=== PATIENT | male | born 1965 | race Hispanic/Latino ===

== ENCOUNTER 2018-12-17 06:45 | Inpatient (IN) | payer OTHER ==
--- NOTE | 2018-12-17 07:12 | C.PDOC ---
History Of Present Illness 53 year old male presents to ED requesting detox. Patient states that he last used heroin last night. He notes sniffing heroin, no injection. He denies any fall or trauma. He notes that he called ahead regarding detox. He denies any fever, chills or night seats. No abdominal pain. No chest pain or shortness of breath. No other drug use besides heroin. Patient denies any physical complaints, suicidal ideation, and homicidal ideation. Time Seen by Provider: 12/17/18 07:01 Chief Complaint (Nursing): Substance Abuse History Per: Patient History/Exam Limitations: no limitations Onset/Duration Of Symptoms: Other (requesting detox) Suicide/Self Injury Attempted (Context): None Modifying Factor(s): Other (heroin) Severity: None Associated Symptoms: denies: Suicidal Thoughts, Suicidal Plan, Other (homicidal ideation) Involuntary Hold By: None Recent travel outside of the [place]: No Past Medical History Reviewed: Historical Data, Nursing Documentation, Vital Signs Vital Signs: Last Vital Signs Temp 97.8 F 12/17/18 06:50 Pulse 79 12/17/18 06:50 Resp 16 12/17/18 06:50 BP 120/84 12/17/18 06:50 Pulse Ox 99 12/17/18 06:50 - Medical History PMH: Anxiety, Depression Surgical History: No Surg Hx Family History: States: Unknown Family Hx - Social History Hx Alcohol Use: Yes Hx Substance Use: Yes - Immunization History Hx Tetanus Toxoid Vaccination: No Hx Influenza Vaccination: No Hx Pneumococcal Vaccination: No Review Of Systems Constitutional: Negative for: Fever, Chills, Weakness Eyes: Negative for: Pain, Vision Change, Eyelid Inflammation, Redness ENT: Negative for: Ear Pain, Ear Discharge, Nose Pain, Nose Congestion, Mouth Pain, Mouth Swelling Cardiovascular: Negative for: Chest Pain, Palpitations, Orthopnea, Edema Respiratory: Negative for: Cough, Shortness of Breath Gastrointestinal: Negative for: Nausea, Vomiting, Abdominal Pain, Constipation, Melena, Hematochezia Genitourinary: Negative for: Dysuria, Frequency Musculoskeletal: Negative for: Neck Pain, Shoulder Pain Skin: Negative for: Rash, Lesions Neurological: Negative for: Weakness, Numbness, Dizziness Psych: Negative for: Anxiety Physical Exam - Physical Exam Appears: Well, Non-toxic, No Acute Distress Skin: Normal Color, Warm, Dry Head: Atraumatic, Normacephalic Eye(s): bilateral: Normal Inspection, PERRL, EOMI Ear(s): Bilateral: Normal Nose: Normal, No Flaring, No Discharge, No Epistaxis, No Septal Hematoma Oral Mucosa: Moist Tongue: Normal Appearing Lips: Normal Appearing Teeth: Normal Dentition Gingiva: Normal Appearing Throat: Normal, No Erythema, No Exudate Neck: Normal, Normal ROM, Trachea Midline, No Midline Cervical Tenderness, Sup ple, No Other (meningeal signs) Lymphatic: Normal Exam Chest: Symmetrical, No Deformity Cardiovascular: Rhythm Regular, No Friction Rub, No Murmur, No JVD Respiratory: Normal Breath Sounds, No Accessory Muscle Use, No Rales, No Rhonchi, No Wheezing Gastrointestinal/Abdominal: Normal Exam, Soft, No Tenderness, No Distention Back: Normal Inspection, No CVA Tenderness, No Vertebral Tenderness Extremity: Normal ROM, No Tenderness Extremity: Bilateral: Atraumatic, Normal Color And Temperature, Normal ROM Neurological/Psych: Oriented x3, Normal Speech, Normal Cognition, No Cerebellar Signs, Normal Motor Gait: Steady Extremity: Right: No Drift, Left: No Drift ED Course And Treatment - Laboratory Results Result Diagrams: 12/17/18 07:32 12/17/18 07:32 O2 Sat by Pulse Oximetry: 99 (in RA) Medical Decision Making Medical Decision Makin53 year old male requesting detox from heroin no fall or trauma. No headache, nausea, vomiting. No fever, chills or night sweats. No abdominal pain. No GI or complaints. No rash noted, no injection sites. Plan: Labs with UA and drug screen ordered for patient Crisis called for patient. 0816 pending labs, pt in nad 0837 labs largely unremarkable, medically clear informed Pt to follow up with his PMD and urologist outpatient for blood in stool. He denies any body aches / fall / trauma or back pain. pt in NAD pending crisis dispo [id number] pt in [facility] appreciate consult w/ Crisis: To Dr. De Anda, heroin detox Disposition - Disposition Disposition: HOME/ ROUTINE Disposition Time: 08:37 Condition: GOOD Forms: [facility] (Vietnamese) - Clinical Impression Clinical Impression: Heroin use - Scribe Statement The provider has reviewed the documentation as recorded by the Scribe (Aide Leonard) Provider Attestation: All medical record entries made by the Scribe were at my direction and personally dictated by me. I have reviewed the chart and agree that the record accurately reflects my personal performance of the history, physical exam, medical decision making, and the department course for this patient. I have also personally directed, reviewed, and agree with the discharge instructions and disposition.
--- NOTE | 2018-12-17 07:13 | C.PDOC ---
Time Seen by Provider: 12/17/18 07:01 Chief Complaint (Nursing): Substance Abuse Past Medical History Vital Signs: Last Vital Signs Temp 97.8 F 12/17/18 06:50 Pulse 79 12/17/18 06:50 Resp 16 12/17/18 06:50 BP 120/84 12/17/18 06:50 Pulse Ox 99 12/17/18 06:50 - Medical History PMH: Anxiety, Depression - Social History Hx Alcohol Use: Yes Hx Substance Use: Yes - Immunization History Hx Tetanus Toxoid Vaccination: No Hx Influenza Vaccination: No Hx Pneumococcal Vaccination: No ED Course And Treatment O2 Sat by Pulse Oximetry: 99 Disposition - Disposition Forms: [employer] (Uzbek)
[2018-12-17 07:41] LABS: BASO # 0.1 K/uL (0.0-0.2); BASO % 0.7 % (0.0-2.0); EOS # 0.3 K/uL (0.0-0.7); EOS % 3.7 % (0.0-4.0); HEMOGLOBIN 13.7 g/dL (12.0-18.0); LYMPH # 2.8 K/uL (1.0-4.3); MEAN CELL VOLUME 93.6 fL (80.0-94.0); MEAN CORPUSCULAR HGB CONC 34.2 g/dL (33.0-37.0); MEAN PLATELET VOLUME 7.3 fL (7.2-11.7); MONO # 0.5 K/uL (0.0-0.8); MONO % 6.6 % (0.0-10.0); NEUT # 4.1 K/uL (1.8-7.0); RBC 4.29 Mil/uL (4.40-5.90); RED CELL DISTRIBUTION WIDTH 13.4 % (11.5-14.5); WHITE BLOOD COUNT 7.7 K/uL (4.8-10.8)
[2018-12-17 08:00] LABS: ACETAMINOPHEN < 10.0 ug/mL (10.0-30.0); SALICYLATE < 1.0 mg/dL 1
[2018-12-17 08:02] LABS: ALB/GLOB RATIO 1.6 (1.0-2.1); ALBUMIN 4.6 g/dL (3.5-5.0); ALT/SGPT 25 U/L (21-72); AST/SGOT 28 U/L (17-59); BLOOD UREA NITROGEN 20 mg/dL (9-20); CALCIUM 9.4 mg/dl (8.6-10.4); GFR NON-AFRICAN AMERICAN > 60
[2018-12-17 08:09] LABS: SQUAMOUS EPITHIAL 1 /hpf (0-5); URINE BILIRUBIN NEGATIVE (NEGATIVE); URINE BLOOD 1+ (NEGATIVE); URINE CLARITY Clear (Clear); URINE COLOR Yellow (YELLOW); URINE GLUCOSE (UA) NORMAL (Normal); URINE LEUKOCYTE ESTERASE NEG Leu/uL (Negative); URINE PROTEIN NEGATIVE (NEGATIVE); URINE UROBILINOGEN NORMAL mg/dL (0.2-1.0)
[2018-12-17 08:37] LABS: BARBITURATES, UR NEGATIVE (NEGATIVE); BENZODIAZEPINES, UR NEGATIVE (NEGATIVE); PHENCYCLIDINE, UR NEGATIVE (NEGATIVE)
[2018-12-17 08:59] LABS: OPIATES, UR POSITIVE (NEGATIVE)
--- NOTE | 2018-12-17 11:56 | PCM.BM ---
<Meka Menendez - Last Filed: 12/17/18 11:54> Treatment Plan Problems - Problems identified on initial assessmt Low Motivation to Change Date Initiated: 12/17/18 Time Initiated: 11:54 Assessment reference: NA Status: Active Defensive Coping Date Initiated: 12/17/18 Time Initiated: 11:55 Assessment reference: NA Status: Active Treatment assets and liabiliti Patient Assests: cooperative, self-reliant, ADL independent, physically healthy, negotiates basic needs Patient Liabilities: live alone, financial problems, poor support system, relationship conflicts, substance abuse - Milieu Protocol Maintain good personal hygiene: daily Encourage regular showers, daily Remind patient to perform daily oral care, daily Assist patient to perform ADL's Maintain personal safety: every shift Educate patient to report safety concerns to staff, every shift Monitor environment for contraband/sharps Medication safety: Monitor for expected outcome, potential side effects: every shift, Assess barriers to learning: every shift, Assess readiness for medication education: every shift <Adriana De Anda - Last Filed: 12/19/18 18:50> - Diagnosis (1) Opioid use disorder, severe, dependence Status: Acute Interventions: 12/17/18 18:50 * Assess 7x/week regarding severity of withdrawal * Educate regarding risks, benefits, side effects and alternatives of medications * Use Motivational Interviewing for abstinence * Use CBT for relapse prevention * Medication management for withdrawal symptoms * Encourage medication assisted treatment *
--- NOTE | 2018-12-17 12:37 | PCM.PSYCH ---
Initial Psychiatric Evaluation - Initial Psychiatric Evaluation Type of Admission: Voluntary Legal Status: Capacity Chief Complaint (in patient's own words): "I'm not well" History of Present Illness and Precipitating Events: This is a 53 year old male who is single with 1 adult child, currently living with his father, and unemployed with no income. He presented to the detox unit for heroin, Xanax, and alcohol. Patient reports experiencing severe opioid withdrawal symptoms of nausea, tremors, headaches, fever and chills, and stomach pain. Patient states he last used heroin, Xanax, and alcohol yesterday morning at 7am. He began using oxycodone after sustaining an injury while working before turning to heroin. He started using Xanax to treat his anxiety attacks. Patient denies a history of withdrawal symptoms for Xanax and alcohol. Patient denies homicidal or suicidal ideations, auditory or visual hallucinations, or paranoia. Patient reports sniffing 15 bags of heroin per day for the last 7 years. Patient ingests 2-3 sticks of Xanax per day for the last 2-3 years. Patient drinks 5 drinks total between beers and shots everyday for the last 15 years. He last used each substance yesterday at 7am. Patient smokes pack per day for the last 20 years. Patient confirms sporadic marijuana and cocaine use. Patient denies methamphetamine use. Patient states she has detoxed 2 times, most recently 5 months ago at [facility]. He relapsed 2 days after leaving. Patient confirms 1 rehab stint in his 30s. Patient denies maintenance therapy with methadone or suboxone. Psych Hx: anxiety and depression, both severe and at times debilitating Fam Psych: denies PMHx: pinched thoracic nerve, muscle spasms Meds: Tylenol Allergies: denies SurgHx: denies Current Medications: Active Medications Generic Name Dose Route Start Last Admin Trade Name Freq PRN Reason Stop Dose Admin Al Hydrox/Mg Hydrox/Simethicone 30 ml 12/17/18 12:23 Maalox 30 Ml PO TID PRN Indigestion / Heartburn Clonidine HCl 0.1 mg 12/17/18 12:19 Catapres PO Q4 PRN COWS Score More or Equal to 5 Hydroxyzine HCl 50 mg 12/17/18 12:20 Atarax PO Q6H PRN Anxiety Ibuprofen 600 mg 12/17/18 12:19 Motrin Tab PO Q6 PRN Pain, moderate (4-7) Loperamide HCl 2 mg 12/17/18 12:19 Imodium PO Q8 PRN Diarrhea Ondansetron HCl 4 mg 12/17/18 12:19 Zofran Tab PO Q8 PRN Nausea/Vomiting Pneumococcal Polyvalent Vaccine 0.5 ml 12/20/18 10:00 Pneumovax 23 Vaccine IM 12/20/18 10:01 .ONCE ONE Trazodone HCl 100 mg 12/17/18 12:20 Desyrel PO HS PRN Insomnia Past Psychiatric History - Past Psychiatric History Pertinent Medical Hx (Current Medical&Sleep Prob, Allergies): Allergies Allergy/AdvReac Type Severity Reaction Status Date / Time No Known Allergies Allergy Unverified 12/17/18 07:00 No Known Home Med 12/17/18 Review of Systems - Neurological Neurological: Tremor - Psychiatric Psychiatric: Abnormal Sleep Pattern, Anhedonia, Anxiety, Depression. absent: Hallucinations, Homicidal Ideation, Suicidal Ideation Mental Status Examination - Personal Presentation Personal Presentation: Looks stated age - Affect Affect: Constricted - Motor Activity Motor Activity: Calm - Reliability in Providing Information Reliability in Providing Information: Good - Speech Speech: Organized - Mood Mood: Depressed, Anxious - Formal Thought Process Formal Thought Process: No Impairment - Cognitive Functions Orientation: Person, Place, Situation, Time Sensorium: Alert Attention/Concentration: Attentive Estimate of Intelligence: Average Judgement: Intact, as evidence by: Insight regarding need for hospitalization Memory: Recent intact, as evidence by: Ability to recall events of the day, Remote intact, as evidenced by: Abilit to recall sig. life events - Risk Risk: Withdrawal, Diminished functioning - Strength & Assets Inventory Strength & Assets Inventory: Cooperative - Limitations Limitations: Other DSM 5 DX - DSM 5 DSM 5 Diagnosis: Opioid use disorder, severe Opioid withdrawal Anxiolytic/Sedative/Hypnotic use disorder, severe Anxiolytic/Sedative/Hypnotic withdrawal Alcohol use disorder, severe Alcohol withdrawal Tobacco use disorder, severe Major depression MAURICIO - Recommended/Plan of Treatment Treatment Recommendations and Plan of Treatment: Taper with Methadone and librium Remeron for depression Lyrica for neuropathy Start Folic Acid, Thiamine, Multivitamins Gabapentin for augmentation and neuropathy As needed medications Clonidine, Atarax, and Motrin Trazodone for insomnia Pregabalin for nerve pain Mirtazapine for depression All risks, benefits and alternatives of the meds discussed, and the pt agreed and understood. Attend groups and activities Supportive therapy and psychoeducation [place] for abstinence CBT for relapse prevention Encourage MAT Encourage grief counseling Refer to outpatient rehab or IOP, and self-help groups Teach healthy lifestyle methods, i.e. diet, exercise, meditation Smoking cessation with [place] Nicotine patch 34 minutes Projected ELOS: 4-5 days Prognosis: good
[2018-12-17] MEDS: Multiple Vitamins Tab PO SCH (15:45)
[2018-12-17] MEDS: Aluminum Hydroxide/Magnesium Hydroxide Susp (30 mL) PO PRN (21:01)
--- NOTE | 2018-12-18 09:00 | PCM.PYCHPN ---
Psychiatric Progress Note - Psychiatric Progress Note Patient seen today, length of contact: 16 min Patient Chief Complaint: "I'm withdrawing, the dose is not enough" Problems Identified/Issues Discussed: The pt is seen, chart reviewed, case is discussed with staff. The pt is compliant with medications and reports no side-effects. Symptoms are improving but needs more time to stabilize and to avoid relapse. Pt attends groups and activities. Support given, psycho-education provided. After care discussed. Medication Change: Yes (detox changes daily) Medical Record Reviewed: Yes Mental Status Examination - Cognitive Function Orientation: Person, Place, Situation, Time Memory: Intact Attention: WNL Concentration: Poor Association: WNL Fund of Knowledge: WNL - Mood Mood: Depressed, Anxious - Affect Affect: Constricted - Speech Speech: Appropriate - Formal Thought Process Formal Thought Process: No Impairment - Suicidal Ideation Suicidal Ideation: No - Homicidal Ideation Homicidal Ideation: No Goal/Treatment Plan - Goal/Treatment Plan Need for Continued Stay: Discharge may exacerbated symptoms, Severe functional impairment Progress Toward Problem(s) and Goals/Treatment Plan: Taper with Methadone and librium additional 5 mg prn ordered Remeron for depression Lyrica for neuropathy Start Folic Acid, Thiamine, Multivitamins Gabapentin for augmentation and neuropathy As needed medications Clonidine, Atarax, and Motrin Trazodone for insomnia Pregabalin for nerve pain Mirtazapine for depression All risks, benefits and alternatives of the meds discussed, and the pt agreed and understood. Attend groups and activities Supportive therapy and psychoeducation [place] for abstinence CBT for relapse prevention Encourage MAT Encourage grief counseling Refer to outpatient rehab or IOP, and self-help groups Teach healthy lifestyle methods, i.e. diet, exercise, meditation Smoking cessation with [place] Nicotine patch
[2018-12-18] MEDS: Multiple Vitamins Tab PO SCH (09:17)
[2018-12-19] MEDS: Multiple Vitamins Tab PO SCH (09:45)
--- NOTE | 2018-12-19 14:53 | RAD ---
Date of service: 12/18/2018 HISTORY: for placement COMPARISON: No prior. TECHNIQUE: Chest PA and lateral FINDINGS: LUNGS: No active pulmonary disease. PLEURA: No significant pleural effusion identified. No pneumothorax apparent. CARDIOVASCULAR: No aortic atherosclerotic calcification present. Normal cardiac size. No pulmonary vascular congestion. OSSEOUS STRUCTURES: No significant abnormalities. VISUALIZED UPPER ABDOMEN: Normal. OTHER FINDINGS: None. IMPRESSION: No active disease.
--- NOTE | 2018-12-19 18:56 | PCM.PYCHPN ---
Psychiatric Progress Note - Psychiatric Progress Note Patient seen today, length of contact: 16 min Patient Chief Complaint: "Not good" Problems Identified/Issues Discussed: The pt is improving slowly but needs more time due to severity of symptoms and relapse risk. No SEs from medications As per nurses he c/o food and meds a lot He told one of them that he plans to stay "7 days" Medication Change: Yes (detox changes daily) Medical Record Reviewed: Yes Mental Status Examination - Cognitive Function Orientation: Person, Place, Situation, Time Memory: Intact Attention: WNL Concentration: Poor Association: WNL Fund of Knowledge: WNL - Mood Mood: Depressed, Anxious - Affect Affect: Constricted - Speech Speech: Appropriate - Formal Thought Process Formal Thought Process: No Impairment - Suicidal Ideation Suicidal Ideation: No - Homicidal Ideation Homicidal Ideation: No Goal/Treatment Plan - Goal/Treatment Plan Need for Continued Stay: Discharge may exacerbated symptoms, Severe functional impairment Progress Toward Problem(s) and Goals/Treatment Plan: Taper with Methadone and librium additional 5 mg prn ordered Remeron for depression Lyrica for neuropathy Start Folic Acid, Thiamine, Multivitamins Gabapentin for augmentation and neuropathy As needed medications Clonidine, Atarax, and Motrin Trazodone for insomnia Pregabalin for nerve pain Mirtazapine for depression All risks, benefits and alternatives of the meds discussed, and the pt agreed and understood. Attend groups and activities Supportive therapy and psychoeducation [place] for abstinence CBT for relapse prevention Encourage MAT Encourage grief counseling Refer to outpatient rehab or IOP, and self-help groups Teach healthy lifestyle methods, i.e. diet, exercise, meditation Smoking cessation with [place] Nicotine patch
[2018-12-19] MEDS: Aluminum Hydroxide/Magnesium Hydroxide Susp (30 mL) PO PRN (22:27)
[2018-12-20] MEDS: Multiple Vitamins Tab PO SCH (09:30)
[2018-12-20] MEDS ORDERED: Pneumococcal 23-Valent Vaccine IM ONE (10:00)
--- NOTE | 2018-12-20 14:32 | PCM.PYCHPN ---
Psychiatric Progress Note - Psychiatric Progress Note Patient seen today, length of contact: 16 min Patient Chief Complaint: "Not good" Problems Identified/Issues Discussed: The pt is improving slowly but needs more time due to severity of symptoms and relapse risk. No SEs from medications As per nurses he c/o food and meds a lot He told one of them that he plans to stay "7 days" Medication Change: Yes (detox changes daily) Medical Record Reviewed: Yes Mental Status Examination - Cognitive Function Orientation: Person, Place, Situation, Time Memory: Intact Attention: WNL Concentration: Poor Association: WNL Fund of Knowledge: WNL - Mood Mood: Depressed, Anxious - Affect Affect: Constricted - Speech Speech: Appropriate - Formal Thought Process Formal Thought Process: No Impairment - Suicidal Ideation Suicidal Ideation: No - Homicidal Ideation Homicidal Ideation: No Goal/Treatment Plan - Goal/Treatment Plan Need for Continued Stay: Discharge may exacerbated symptoms, Severe functional impairment Progress Toward Problem(s) and Goals/Treatment Plan: Taper with Methadone and librium additional 5 mg prn ordered Remeron for depression Lyrica for neuropathy Start Folic Acid, Thiamine, Multivitamins Gabapentin for augmentation and neuropathy As needed medications Clonidine, Atarax, and Motrin Trazodone for insomnia Pregabalin for nerve pain Mirtazapine for depression All risks, benefits and alternatives of the meds discussed, and the pt agreed and understood. Attend groups and activities Supportive therapy and psychoeducation [place] for abstinence CBT for relapse prevention Encourage MAT Encourage grief counseling Refer to outpatient rehab or IOP, and self-help groups Teach healthy lifestyle methods, i.e. diet, exercise, meditation Smoking cessation with [place] Nicotine patch
[2018-12-21] MEDS: Multiple Vitamins Tab PO SCH (09:54)
--- NOTE | 2018-12-21 13:46 | PCM.PYCHPN ---
Psychiatric Progress Note - Psychiatric Progress Note Patient seen today, length of contact: 16 min Patient Chief Complaint: "Not good" Problems Identified/Issues Discussed: The pt is improving slowly but needs more time due to severity of symptoms and relapse risk. No SEs from medications As per nurses he c/o food and meds a lot He told one of them that he plans to stay "7 days" Medication Change: Yes (detox changes daily) Medical Record Reviewed: Yes Mental Status Examination - Cognitive Function Orientation: Person, Place, Situation, Time Memory: Intact Attention: WNL Concentration: Poor Association: WNL Fund of Knowledge: WNL - Mood Mood: Depressed, Anxious - Affect Affect: Constricted - Speech Speech: Appropriate - Formal Thought Process Formal Thought Process: No Impairment - Suicidal Ideation Suicidal Ideation: No - Homicidal Ideation Homicidal Ideation: No Goal/Treatment Plan - Goal/Treatment Plan Need for Continued Stay: Discharge may exacerbated symptoms, Severe functional impairment Progress Toward Problem(s) and Goals/Treatment Plan: Taper with Methadone and librium additional 5 mg prn ordered Remeron for depression Lyrica for neuropathy Start Folic Acid, Thiamine, Multivitamins Gabapentin for augmentation and neuropathy As needed medications Clonidine, Atarax, and Motrin Trazodone for insomnia Pregabalin for nerve pain Mirtazapine for depression All risks, benefits and alternatives of the meds discussed, and the pt agreed and understood. Attend groups and activities Supportive therapy and psychoeducation [place] for abstinence CBT for relapse prevention Encourage MAT Encourage grief counseling Refer to outpatient rehab or IOP, and self-help groups Teach healthy lifestyle methods, i.e. diet, exercise, meditation Smoking cessation with [place] Nicotine patch
[2018-12-21] MEDS: Aluminum Hydroxide/Magnesium Hydroxide Susp (30 mL) PO PRN (16:31)
[2018-12-21 17:25] VITALS: O2SAT 96
[2018-12-21 20:34] VITALS: RESP 18
--- NOTE | 2018-12-22 08:09 | PCM.PYCHDC ---
Mental Status Examination - Mental Status Examination Orientation: Person Discharge Summary - Discharge Note Consultations:: List each consultation separately and include: 1. Reason for request. 2. Findings. 3. Follow-up Summary of Hospital Course include:: 1. Description of specific treatment plan utilized for patients during their course of treatmen. 2. Summarize the time- course for resolution of acute symptoms and/or regressed behaviors. 3. Describe issues identified and worked on during hospitalization. 4. Describe medication utilized. 5. Describe medical problems identified and treated. 6. Reassessment of suicide risk Summary of Hospital Course: This is a 53 year old male who is single with 1 adult child, currently living with his father, and unemployed with no income. He presented to the detox unit for heroin, Xanax, and alcohol. Patient reports experiencing severe opioid withdrawal symptoms of nausea, tremors, headaches, fever and chills, and stomach pain. Patient states he last used heroin, Xanax, and alcohol yesterday morning at 7am. He began using oxycodone after sustaining an injury while working before turning to heroin. He started using Xanax to treat his anxiety attacks. Patient denies a history of withdrawal symptoms for Xanax and alcohol. Patient denies homicidal or suicidal ideations, auditory or visual hallucinations, or paranoia. Patient reports sniffing 15 bags of heroin per day for the last 7 years. Patient ingests 2-3 sticks of Xanax per day for the last 2-3 years. Patient drinks 5 drinks total between beers and shots everyday for the last 15 years. He last used each substance yesterday at 7am. Patient smokes pack per day for the last 20 years. Patient confirms sporadic marijuana and cocaine use. Patient denies methamphetamine use. Patient states she has detoxed 2 times, most recently 5 months ago at [facility]. He relapsed 2 days after leaving. Patient confirms 1 rehab stint in his 30s. Patient denies maintenance therapy with methadone or suboxone. Psych Hx: anxiety and depression, both severe and at times debilitating Fam Psych: denies PMHx: pinched thoracic nerve, muscle spasms Meds: Tylenol Allergies: denies SurgHx: denies He is accepted by [facility] rehab. - Diagnosis (1) Opioid use disorder, severe, dependence Current Visit: Yes Status: Acute - Final Diagnosis (DSM 5) Condition upon Discharge: GOOD Disposition: HOME/ ROUTINE Follow-up Treatment Plan: Taper with Methadone and librium additional 5 mg prn ordered Remeron for depression Lyrica for neuropathy Start Folic Acid, Thiamine, Multivitamins Gabapentin for augmentation and neuropathy As needed medications Clonidine, Atarax, and Motrin Trazodone for insomnia Pregabalin for nerve pain Mirtazapine for depression All risks, benefits and alternatives of the meds discussed, and the pt agreed and understood. Attend groups and activities Supportive therapy and psychoeducation [place] for abstinence CBT for relapse prevention Encourage MAT Encourage grief counseling Refer to outpatient rehab or IOP, and self-help groups Teach healthy lifestyle methods, i.e. diet, exercise, meditation Smoking cessation with [place] Nicotine patch Prescriptions/Medication Reconciliation: Gabapentin [Neurontin] 400 mg PO TID #90 cap Mirtazapine [Remeron] 15 mg PO HS #30 tab QUEtiapine [Seroquel] 100 mg PO HS #30 tab traZODone [Desyrel] 100 mg PO HS PRN #30 tab PRN Reason: Insomnia
[2018-12-22] MEDS: Multiple Vitamins Tab PO SCH (09:07)
[2018-12-22 09:21] VITALS: BP 118/79; PULSE 102; TEMP 98.5
== END 2018-12-22 10:00 | disposition home or self-care (01) | DRG 745 ==
LOC: C.ER 06:45 → C.7D 11:38
PROVIDERS: ADMIT Psychiatry & Neurology Psychiatry; ATTEND Psychiatry & Neurology Psychiatry
PROC: HZ2ZZZZ Detoxification Services for Substance Abuse Treatment (ICD-10-PCS; principal; 2018-12-17)
PROC: HZ80ZZZ Medication Management for Substance Abuse Treatment, Nicotine Replacement (ICD-10-PCS; 2018-12-17)
PROC: GZ3ZZZZ Medication Management (ICD-10-PCS; 2018-12-17)
PROC: HZ46ZZZ Group Counseling for Substance Abuse Treatment, Psychoeducation (ICD-10-PCS; 2018-12-17)
PROC: HZ59ZZZ Individual Psychotherapy for Substance Abuse Treatment, Supportive (ICD-10-PCS; 2018-12-17)
DX: F11.23 Opioid dependence with withdrawal (principal); F10.239 Alcohol dependence with withdrawal, unspecified; F13.239 Sedative, hypnotic or anxiolytic dependence with withdrawal, unspecified; F32.9 Major depressive disorder, single episode, unspecified; F41.1 Generalized anxiety disorder; F14.90 Cocaine use, unspecified, uncomplicated; F12.90 Cannabis use, unspecified, uncomplicated; F17.210 Nicotine dependence, cigarettes, uncomplicated; G47.00 Insomnia, unspecified; G62.9 Polyneuropathy, unspecified